=== PATIENT | male | born 1985 | race Asian ===

== ENCOUNTER 2023-12-18 08:13 | Day surgery (SDC) | payer MEDICAID ==
[~2023-12-18] VITALS: Ht 160 cm; Wt 73.9 kg
[2023-12-18] MEDS ORDERED: MIDAZOLAM HCL 5 MG/5 ML VIAL ONE ×2 (08:33→10:16)
[2023-12-18] MEDS ORDERED: fentaNYL CITRATE/PF 100 MCG/2 ML AMP ONE ×2 (08:33→10:15)
[2023-12-18 12:48] VITALS: O2SAT 99
[2023-12-18 16:35] VITALS: BP_SYST 125; PULSE 73; RESP 19
== END 2023-12-18 11:21 | disposition home or self-care (01) ==
LOC: SDS 08:13 → SMU 08:14 → SDS 11:21
PROVIDERS: ATTEND Internal Medicine
DX: K62.5 Hemorrhage of anus and rectum (principal); K63.5 Polyp of colon; K64.8 Other hemorrhoids; E78.5 Hyperlipidemia, unspecified; Z88.8 Allergy status to other drugs, medicaments and biological substances; Z87.891 Personal history of nicotine dependence
CPT/HCPCS: 45385; 99152; 88305; G0378; J2250; J3010